=== PATIENT | female | born 1970 | race Caucasian/White ===

== ENCOUNTER → 2019-06-09 | Day surgery (SDC) | payer BC ==
[2019-06-05 12:54] VITALS: BMI 32.9
[~2019-06-09] MED LIST: BUPIVACAINE HCL/PF 0.25% (2.5MG/ML) 10 ML VIAL IJ ONE; BUPIVACAINE HCL/PF 2.5 MG/ML - 30 ML VIAL IJ ONE; DEXAMETHASONE SOD PHOSPHATE 4 MG/1 ML VIAL ONE; LACTATED RINGERS SOLUTION 1,000 ML IV SCH; LIDOCAINE HCL/PF 2% SDV 5ML VIAL ONE; MIDAZOLAM HCL 2 MG/2 ML SINGLE DOSE VIAL ONE; ONDANSETRON 4 MG/2 ML VIAL IVPUSH PRN; ONDANSETRON 4 MG/2 ML VIAL ONE; PROPOFOL 20 ML ONE; ceFAZolin SODIUM 1 GM VIAL ONE; oxyCODONE HCL 5 MG TABLET ONE; oxyCODONE HCL 5 MG TABLET PO PRN
--- NOTE | 2019-06-09 15:25 | OP ---
DATE OF OPERATION: 06/09/2019 Done at [facility] SURGEON: Maksim Steward MD GRATED CHEESE MAKER: EMILY Melchor PREOPERATIVE DIAGNOSES: 1. Right knee medial meniscal tear. 2. Right knee cartilage injury. 3. Right knee synovitis. POSTOPERATIVE DIAGNOSES: 1. Right knee medial meniscal tear. 2. Right knee cartilage injury. 3. Right knee synovitis. PROCEDURE: Right knee arthroscopy with partial meniscectomy medial meniscus, CPT code 98851. FINDINGS: 1. Medial meniscus posterior horn extending to root tear, posterior 10%. 2. Lateral meniscus central tear, partial fraying. 3. Synovitis patellofemoral medial and lateral notch area. 4. Minimal cartilage changes, anterior grade 2 cartilage injury 4 cm x 2 cm medial femoral condyle. 5. ACL and PCL intact. 6. Diffuse grade 2 changes patella and patellofemoral trochlea. DESCRIPTION OF PROCEDURE: Informed consent was obtained. The patient came to the operating room, where the lower extremity was prepped and draped in a sterile fashion. A tourniquet was placed on the upper thigh, but not inflated. Using standard arthroscopic technique, a lateral incision and portal was made to allow for introduction of the camera into the suprapatellar bursa. This was then taken to the medial joint line, where under direct visualization, a medial incision and portal was made. Excessive synovium noted in the medial, lateral and patellofemoral and notch area was removed by an upbiter, shaver and Bovie cautery. This was found to bring in inflammatory tissue into the joint surface, a source of pain and dysfunction. Probing of the medial and lateral meniscus found tears, as described in the findings. These were removed with the upbiter and shaver and taken back to a stable rim. Grade 2 to 3 degenerative changes were treated with a chondroplasty, removing all flaking surfaces with low-setting Bovie along the periphery to prevent further flaking. Grade 4 changes, as noted, were treated with an abrasoplasty, creating a bleeding surface at the bone/cartilage interface. Aggressive debridement with shaver/dalila created bleeding surface. Micro fracture also done when indicated in findings. All areas of the knee were once again reexamined. The knee was then drained and a single suture was placed in all portals. A sterile dressing was placed and the patient was transferred to the recovery room without complication. The PA listed above was present and assisted at surgery. Their presence was absolutely medically necessary for the completion of the procedure. They helped hold the arthroscopy, pass instruments (and implants when indicated) and the procedure could not have been completed without their assistance. MAKSIM STEWARD M.D. [id number]
[2019-06-09 16:28] VITALS: BP 121/75; PULSE 68; TEMP 98
--- NOTE | 2019-06-14 17:51 | PATH ---
Surgical Pathology Report Patient Name: FRIDA WHITMORE Med. Rec. #: [id number] /Age/Gender: 1970 (Age: 48) / F Account: [id number] Location: [facility] Taken: 06/09/2019 Received: 06/09/2019 Reported: 06/14/2019 Physicians: Maksim Lombardo M.D. Specimen(s) Received KNEE SHAVINGS, RIGHT Clinical History Internal derangement of right knee Final Diagnosis KNEE SHAVINGS, RIGHT, ARTHROSCOPY: FRAGMENTS OF CARTILAGE, DENSE FIBROCONNECTIVE TISSUE, ADIPOSE TISSUE, AND REACTIVE SYNOVIUM. Electronically Signed Nelli Sanderson M.D. Gross Description Received in formalin, labeled "right knee shavings," is a 5.0 x 3.5 x 0.3 cm. aggregate of jhaveri-yellow soft tissue fragments. A sales representative jewelry portion is submitted in one cassette. /06/13/2019 saudi06/13/2019
== END | disposition home or self-care (01) ==
LOC: FASU 12:07
PROVIDERS: ATTEND Orthopaedic Surgery
PROC: 0SBC4ZZ Excision of Right Knee Joint, Percutaneous Endoscopic Approach (ICD-10-PCS; 2019-06-09)
PROC: 0SBC4ZZ Excision of Right Knee Joint, Percutaneous Endoscopic Approach (ICD-10-PCS; 2019-06-09)
PROC: 0SBC4ZZ Excision of Right Knee Joint, Percutaneous Endoscopic Approach (ICD-10-PCS; principal; 2019-06-09 13:35)
DX: S83.241A Other tear of medial meniscus, current injury, right knee, initial encounter (principal); S83.8X1A Sprain of other specified parts of right knee, initial encounter; M65.861 Other synovitis and tenosynovitis, right lower leg; X58.XXXA Exposure to other specified factors, initial encounter; Y93.9 Activity, unspecified; Y92.9 Unspecified place or not applicable
CPT/HCPCS: 84703; 88304-TC; 94760